=== PATIENT | female | born 1970 | race Caucasian/White ===

== ENCOUNTER 2016-06-17 22:10 | Emergency (ER) | payer OTHER ==
[~2016-06-17] VITALS: Ht 160 cm; Wt 69.1 kg
[2016-06-17 22:51] VITALS: BP 127/75
[2016-06-17 23:57] LABS: HEMATOCRIT 36.5 % (36.0-46.0); MCH 31.7 PG (29.0-34.0); MCHC 32.6 G/DL (30.0-36.0); MCV 97.3 FL (83-99); MEAN PLAT.VOLUME 10.4 uM^3 (9.5-12.4); PLATELET COUNT 178 K/uL (156-360); RBC DIS.WIDTH-CV 12.5 % (11.8-14.6); RBC DIS.WIDTH-SD 45.1 % (39-53); RED BLOOD COUNT 3.75 M/uL (3.80-5.20); WHITE BLOOD COUNT 5.9 K/uL (4.1-10.2)
[2016-06-17] MEDS ORDERED: ADDERALL10 MG PO (23:59)
[2016-06-18] MEDS ORDERED: CHOLESTYRAMINE P4 GM PO
[2016-06-18 00:12] LABS: CHLORIDE 111 mEq/L (99-109); POTASSIUM 3.4 mEq/L (3.7-5.4); SODIUM 142 mEq/L (136-147)
[2016-06-18 00:14] LABS: GLUCOSE 93 mg/dL (70-99)
[2016-06-18 00:15] LABS: ANION GAP 10 MEQ/L (2-14); D-DIMER ELISA 0.33 mg/L FEU (< 0.57)
[2016-06-18 00:18] LABS: GFR ESTIMATE (CALCULATED) > 59 mL/min/
[2016-06-18 00:19] LABS: UREA NITROGEN (BUN) 14 mg/dL (9-23)
[2016-06-18 00:22] LABS: TROP-I INTERPRETATION NEGATIVE; TROPONIN-I < 0.01 ng/mL (0.0-0.30)
[2016-06-18 02:07] LABS: TROP-I INTERPRETATION NEGATIVE; TROPONIN-I < 0.01 ng/mL (0.0-0.30)
== END 2016-06-18 02:45 | disposition home or self-care (01) ==
LOC: EME 22:10
PROVIDERS: Emergency Medicine
DX: R07.9 Chest pain, unspecified (principal); K29.00 Acute gastritis without bleeding; Z98.84 Bariatric surgery status; Z88.2 Allergy status to sulfonamides; Z72.0 Tobacco use
CPT/HCPCS: 71020; 80048; 84484; 85027; 85379; 93005; 99281; 99283

== ENCOUNTER 2017-09-10 17:26 | Emergency (ER) | payer OTHER ==
[~2017-09-10] VITALS: Ht 160 cm; Wt 92.2 kg
[~2017-09-10 17:26] MED LIST: ADDERALL10 MG PO; CHOLESTYRAMINE P4 GM PO
[2017-09-10] MEDS ORDERED: KEFLEX500 MG PO (22:19)
[2017-09-10] MEDS ORDERED: NORCO 5/3251 TABLET PO (22:29)
[2017-09-10 22:45] VITALS: BP 128/82
== END 2017-09-10 22:46 | disposition home or self-care (01) ==
LOC: EME 17:26 → RME 17:26
DX: L03.115 Cellulitis of right lower limb (principal); R60.0 Localized edema; Z87.891 Personal history of nicotine dependence; Z98.84 Bariatric surgery status; Z88.2 Allergy status to sulfonamides
CPT/HCPCS: 93971; 99281; 99284

== ENCOUNTER 2017-09-16 22:15 | Emergency (ER) | payer OTHER ==
[~2017-09-16] VITALS: Ht 160 cm; Wt 92.9 kg
[~2017-09-16 22:15] MED LIST changes: +KEFLEX500 MG PO; +NORCO 5/3251 TABLET PO
[2017-09-16 23:29] LABS: BASOPHIL (%) 0.5 % (0-1); EOSINOPHIL (%) 3.8 % (0-5); EOSINOPHIL COUNT 0.2 K/uL (0-0.3); HEMATOCRIT 35.3 % (36.0-46.0); HEMOGLOBIN 11.7 G/DL (11.9-15.5); IMMATURE GRANULOCYTE (%) 0.2 % (0.0-0.7); LYMPHOCYTE COUNT 1.7 K/uL (1.0-2.8); MCH 31.6 PG (29.0-34.0); MCHC 33.1 G/DL (30.0-36.0); MCV 95.4 FL (83-99); MONOCYTE (%) 9.6 % (3-12); MONOCYTE COUNT 0.6 K/uL (0-0.8); NEUTROPHIL (%) 56.9 % (45-76); NEUTROPHIL COUNT 3.3 K/uL (1.8-6.4); PLATELET COUNT 188 K/uL (156-360); RBC DIS.WIDTH-CV 12.8 % (11.8-14.6); RBC DIS.WIDTH-SD 44.6 % (39-53); WHITE BLOOD COUNT 5.8 K/uL (4.1-10.2)
[2017-09-16 23:38] LABS: ALBUMIN 3.7 g/dL (3.2-4.8); CHLORIDE 112 mEq/L (99-109); POTASSIUM 3.9 mEq/L (3.7-5.4); SODIUM 142 mEq/L (136-147)
[2017-09-16 23:40] LABS: GLUCOSE 114 mg/dL (70-99)
[2017-09-16 23:42] LABS: TOTAL BILIRUBIN 0.3 mg/dL (0.0-1.0)
[2017-09-16 23:44] LABS: ALKALINE PHOSPHATASE 93 IU/L (3-129); CREATININE 0.7 mg/dL (0.6-1.3); GFR ESTIMATE (CALCULATED) > 59 mL/min/
[2017-09-16 23:45] LABS: AST (GOT) 12 IU/L (2-34); UREA NITROGEN (BUN) 21 mg/dL (9-23)
[2017-09-16 23:47] LABS: ALT (GPT) 14 IU/L (3-49)
[2017-09-16 23:54] LABS: QUANTITATIVE HCG < 4.0 MIU/ML
[2017-09-17 01:35] LABS: APPEARANCE CLEAR ((CLEAR)); BILIRUBIN NEGATIVE; BLOOD NEGATIVE; COLOR YELLOW ((YELLOW)); GLUCOSE (STRIP) NEGATIVE; KETONES NEGATIVE; LEUKOCYTES NEGATIVE; NITRITE NEGATIVE; PROTEIN (STRIP) NEGATIVE; SPECIFIC GRAVITY 1.029 (1.000-1.030); UCUL ADDED? NO; UROBILINOGEN 0.2 MG/DL (0.2-1.0)
[2017-09-17] MEDS ORDERED: PERCOCET 5/31 TABLET PO (01:48)
[2017-09-17 02:11] VITALS: BP 119/79
== END 2017-09-17 02:15 | disposition home or self-care (01) ==
LOC: EME 22:15
PROVIDERS: Emergency Medicine
DX: R22.41 Localized swelling, mass and lump, right lower limb (principal); M25.552 Pain in left hip; M51.36 Other intervertebral disc degeneration, lumbar region; Z86.72 Personal history of thrombophlebitis; Z98.84 Bariatric surgery status; Z88.2 Allergy status to sulfonamides; Z87.891 Personal history of nicotine dependence
CPT/HCPCS: 72131; 72192; 80053; 81003; 84702; 85025; 93971; 99281; 99285; J1885